=== PATIENT | female | born 1970 ===

== ENCOUNTER 2017-11-05 12:23 | Emergency (ER) | payer OTHER ==
[2017-11-05 12:24] VITALS: BMI 25.0
[2017-11-05 12:36] VITALS: BP 133/80; PULSE 64; RESP 18; TEMP 97.7; O2SAT 99
--- NOTE | 2017-11-05 13:21 | ED PDOC ---
HPI: Skin/Bite Injury Time Seen by Provider: 11/05/17 12:40 Chief Complaint (Nursing): Abnormal Skin Integrity Chief Complaint (Provider): Itchy rash x 1 week History Per: Patient History/Exam Limitations: no limitations Onset/Duration Of Symptoms: Days Current Symptoms Are (Timing): Still Present Additional Complaint(s): 47 year old female presents to the ER for an evaluation of itchy rash on the face, upper extremities and torso. Patient was given Amoxicillin for bronchitis 10 days ago. She reports she is unaware if she had rashes in the past. Patient denies difficulty breathing, swelling in the mouth, any new symptoms, medication, soap or lotion. PMD: Tanya Cuellar Past Medical History Reviewed: Historical Data, Nursing Documentation, Vital Signs Vital Signs: Last Vital Signs Temp 97.7 F 11/05/17 12:35 Pulse 64 11/05/17 12:35 Resp 18 11/05/17 12:35 BP 133/80 11/05/17 12:35 Pulse Ox 99 11/05/17 12:35 - Medical History PMH: Arthritis, Asthma, Bronchitis, Chronic Pain (both knees, back) Denies: Chronic Kidney Disease - Family History Family History: States: Unknown Family Hx - Social History Current smoker - smoking cessation education provided: Yes (Light Smoker < 10 Cigarettes Daily) Alcohol: Social Drugs: Cannabis, Cocaine - Immunization History Hx Tetanus Toxoid Vaccination: No - Home Medications Home Medications: Ambulatory Orders Medication Instructions Recorded Azithromycin [Zithromax] 250 mg PO DAILY #6 cap 10/25/13 Codeine Phos/Phenyleph HCl/P 5 ml PO Q6H #100 syr 10/25/13 [Phenergan Vc W/Codeine 120 ml] Prednisone 10 mg PO TID #15 tab 10/25/13 Albuterol/Ipratropium [Duoneb 3 3 ml IH Q6H PRN #30 neb 10/31/13 mg/0.5 mg (3 ml) UD] Mask, Face [Nebulizer Aerosol Mask 1 dev XX PRN PRN #1 dev 10/31/13 Adult] Moxifloxacin Hydrochloride [Avelox] 400 mg PO DAILY #6 tab 10/31/13 Nebulizer [Compact Compressor 1 dev XX PRN PRN #1 dev 10/31/13 Nebulizer] Albuterol HFA [Ventolin HFA 90 2 puff IH [id number] #0 puff 11/18/13 mcg/actuation (8 g)] Benzonatate [Tessalon Perles] 100 mg PO Q8 #20 sgl 11/18/13 Prednisone 40 mg PO DAILY 3 Days tab 11/18/13 Metaxalone [Skelaxin] 800 mg PO Q8 #15 tab 03/13/14 Naproxen [Naprosyn] 1 tab PO BID PRN #25 tab 03/13/14 oxyCODONE/Acetaminophen [Percocet 1 tab PO QID PRN #10 tab 03/13/14 5/325 mg Tab] Ibuprofen [Motrin] 600 mg PO Q8 #30 tab 08/21/14 Ciprofloxacin/Ciprofloxa HCl 500 mg PO BID #14 tab 03/04/15 [Ciprofloxacin] metroNIDAZOLE [Flagyl] 500 mg PO TID #21 tab 03/04/15 traMADol [Ultram] 50 mg PO TID PRN #12 tab 03/04/15 traMADol [Ultram] 50 mg PO Q4 #10 tab 07/31/15 Ibuprofen [Motrin] 400 mg PO Q6 #30 tab 10/08/15 Dicyclomine [Bentyl] 20 mg PO Q12 PRN #20 tab 04/04/16 Ondansetron ODT [Zofran ODT] 4 mg PO Q6 PRN #16 odt 04/04/16 Albuterol Sulfate [Proair Hfa] 0.09 mg IH Q6H PRN #2 inh 10/26/17 Amoxicillin/Clavulanate [Augmentin 1 tab PO BID 7 Days tab 10/26/17 500 MG-125 MG] predniSONE [predniSONE Tab] 20 mg PO BID 5 Days tab 10/26/17 Famotidine [Pepcid] 20 mg PO DAILY #5 tab 11/05/17 predniSONE [predniSONE Tab] 20 mg PO DAILY #12 tab 11/05/17 - Allergies Allergies/Adverse Reactions: Allergies Allergy/AdvReac Type Severity Reaction Status Date / Time black pepper Allergy RASH Verified 10/26/17 12:24 seafood Allergy RASH Uncoded 04/04/16 16:31 tomato sauce Allergy RASH Uncoded 04/04/16 16:31 Review of Systems ROS Statement: Except As Marked, All Systems Reviewed And Found Negative ENT: Negative for: Mouth Swelling Respiratory: Negative for: Shortness of Breath Skin: Positive for: Rash Psych: Negative for: Suicidal ideation (homicidal ideation) Physical Exam - Reviewed Nursing Documentation Reviewed: Yes Vital Signs Reviewed: Yes - Physical Exam Appears: Positive for: Non-toxic, No Acute Distress Head Exam: Positive for: ATRAUMATIC, NORMAL INSPECTION, NORMOCEPHALIC Skin: Positive for: Rash (erythematous blanching rash on truck and upper extremities ) Cardiovascular/Chest: Positive for: Regular Rate, Rhythm. Negative for: Murmur Respiratory: Positive for: Normal Breath Sounds. Negative for: Decreased Breath Sounds, Wheezing, Respiratory Distress Neurologic/Psych: Positive for: Alert, Oriented - ECG O2 Sat by Pulse Oximetry: 99 (RA) Pulse Ox Interpretation: Normal Medical Decision Making Medical Decision Making: Time: 1299 Initial Plan: --SOLU-Medrol 125mg --Pepcid 20mg --Reevaluation Scribe Attestation: Documented by Carol Ann Fuentes, acting as a scribe for Anushka Chandler PA-C. Provider Scribe Attestation: All medical record entries made by the Scribe were at my direction and personally dictated by me. I have reviewed the chart and agree that the record accurately reflects my personal performance of the history, physical exam, medical decision making, and the department course for this patient. I have also personally directed, reviewed, and agree with the discharge instructions and disposition. Disposition - Clinical Impression Clinical Impression: Allergic reaction - Patient ED Disposition Is Patient to be Admitted: No Counseled Patient/Family Regarding: Diagnosis, Need For Followup, Rx Given - Disposition Disposition: Routine/Home Disposition Time: 13:16 Condition: STABLE Prescriptions: Famotidine [Pepcid] 20 mg PO DAILY #5 tab predniSONE [predniSONE Tab] 20 mg PO DAILY #12 tab Instructions: Drug Allergy Forms: [employer] (Yakut)
== END 2017-11-05 13:22 | disposition home or self-care (01) ==
LOC: H.ER 12:23
DX: T78.40XA Allergy, unspecified, initial encounter (principal); G89.29 Other chronic pain
CPT/HCPCS: 81025; 96372; 99283; J2930

== ENCOUNTER 2017-11-07 14:31 | Emergency (ER) | payer OTHER ==
[2017-11-07 14:32] VITALS: BMI 25.0
[2017-11-07 14:44] VITALS: BP 140/78; PULSE 88; RESP 18; TEMP 98.3; O2SAT 99
--- NOTE | 2017-11-07 15:04 | ED PDOC ---
HPI: Allergic Reaction Time Seen by Provider: 11/07/17 14:43 Chief Complaint (Nursing): Allergic Reaction Chief Complaint (Provider): Allergic reaction History Per: Patient History/Exam Limitations: no limitations Onset/Duration Of Symptoms: Days (x4) Current Symptoms Are (Timing): Still Present Home/EMS Treatment: Benadryl Additional Complaint(s): Stephani Saels is a 47 year old female, with no significant past medical history, who presents to the emergency department for evaluation of an itchy rash on face, upper extremities and torso. Patient was recently diagnosed with bronchitis and was given Amoxicillin x12 days ago. Patient is unsure of having similar symptoms in the past. She was seen here x2 days ago for the same symptoms, she was prescribed pepcid and prednisone and reports appearance of rash has improved but still feels itchy. She took 12.5mg of Benadryl but doesn't want to take any more because she doesn't want to feel tired. She denies any shortness of breath, mouth or throat swelling, new medications or exposures such as lotions or soap. No further medical complaints. PMD: Tanya Cuellar Past Medical History Reviewed: Historical Data, Nursing Documentation, Vital Signs Vital Signs: Last Vital Signs Temp 98.3 F 11/07/17 14:40 Pulse 88 11/07/17 14:40 Resp 18 11/07/17 14:40 BP 140/78 11/07/17 14:40 Pulse Ox 99 11/07/17 14:40 - Medical History PMH: Arthritis, Asthma, Bronchitis, Chronic Pain (both knees, back) Denies: Chronic Kidney Disease - Family History Family History: States: Unknown Family Hx - Immunization History Hx Tetanus Toxoid Vaccination: No - Home Medications Home Medications: Ambulatory Orders Medication Instructions Recorded Azithromycin [Zithromax] 250 mg PO DAILY #6 cap 10/25/13 Codeine Phos/Phenyleph HCl/P 5 ml PO Q6H #100 syr 10/25/13 [Phenergan Vc W/Codeine 120 ml] Prednisone 10 mg PO TID #15 tab 10/25/13 Albuterol/Ipratropium [Duoneb 3 3 ml IH Q6H PRN #30 neb 10/31/13 mg/0.5 mg (3 ml) UD] Mask, Face [Nebulizer Aerosol Mask 1 dev XX PRN PRN #1 dev 10/31/13 Adult] Moxifloxacin Hydrochloride [Avelox] 400 mg PO DAILY #6 tab 10/31/13 Nebulizer [Compact Compressor 1 dev XX PRN PRN #1 dev 10/31/13 Nebulizer] Albuterol HFA [Ventolin HFA 90 2 puff IH [id number] #0 puff 11/18/13 mcg/actuation (8 g)] Benzonatate [Tessalon Perles] 100 mg PO Q8 #20 sgl 11/18/13 Prednisone 40 mg PO DAILY 3 Days tab 11/18/13 Metaxalone [Skelaxin] 800 mg PO Q8 #15 tab 03/13/14 Naproxen [Naprosyn] 1 tab PO BID PRN #25 tab 03/13/14 oxyCODONE/Acetaminophen [Percocet 1 tab PO QID PRN #10 tab 03/13/14 5/325 mg Tab] Ibuprofen [Motrin] 600 mg PO Q8 #30 tab 08/21/14 Ciprofloxacin/Ciprofloxa HCl 500 mg PO BID #14 tab 03/04/15 [Ciprofloxacin] metroNIDAZOLE [Flagyl] 500 mg PO TID #21 tab 03/04/15 traMADol [Ultram] 50 mg PO TID PRN #12 tab 03/04/15 traMADol [Ultram] 50 mg PO Q4 #10 tab 07/31/15 Ibuprofen [Motrin] 400 mg PO Q6 #30 tab 10/08/15 Dicyclomine [Bentyl] 20 mg PO Q12 PRN #20 tab 04/04/16 Ondansetron ODT [Zofran ODT] 4 mg PO Q6 PRN #16 odt 04/04/16 Albuterol Sulfate [Proair Hfa] 0.09 mg IH Q6H PRN #2 inh 10/26/17 Amoxicillin/Clavulanate [Augmentin 1 tab PO BID 7 Days tab 10/26/17 500 MG-125 MG] predniSONE [predniSONE Tab] 20 mg PO BID 5 Days tab 10/26/17 Famotidine [Pepcid] 20 mg PO DAILY #5 tab 11/05/17 predniSONE [predniSONE Tab] 20 mg PO DAILY #12 tab 11/05/17 Hydroxyzine Pamoate [Vistaril] 25 mg PO BID PRN #20 capsule 11/07/17 - Allergies Allergies/Adverse Reactions: Allergies Allergy/AdvReac Type Severity Reaction Status Date / Time black pepper Allergy RASH Verified 10/26/17 12:24 seafood Allergy RASH Uncoded 04/04/16 16:31 tomato sauce Allergy RASH Uncoded 04/04/16 16:31 Review of Systems ROS Statement: Except As Marked, All Systems Reviewed And Found Negative ENT: Negative for: Mouth Swelling, Throat Swelling Respiratory: Negative for: Shortness of Breath Skin: Positive for: Rash (face, torso and upper extremities) Physical Exam - Reviewed Nursing Documentation Reviewed: Yes Vital Signs Reviewed: Yes - Physical Exam Appears: Positive for: No Acute Distress Head Exam: Positive for: ATRAUMATIC, NORMOCEPHALIC Skin: Positive for: Normal Color, Warm, Dry, Rash (Erythematous blanching rash on trunk and upper extremities) Eye Exam: Positive for: Normal appearance ENT: Positive for: Normal ENT Inspection Neck: Positive for: Painless ROM Cardiovascular/Chest: Positive for: Regular Rate, Rhythm. Negative for: Murmur Respiratory: Positive for: Normal Breath Sounds. Negative for: Respiratory Distress Back: Positive for: Normal Inspection Extremity: Positive for: Normal ROM (upper and lower extremities). Negative for: Tenderness, Deformity, Swelling Neurologic/Psych: Positive for: Alert, Oriented - ECG O2 Sat by Pulse Oximetry: 99 (RA) Pulse Ox Interpretation: Normal Disposition - Clinical Impression Clinical Impression: Dermatitis - Patient ED Disposition Is Patient to be Admitted: No - Disposition Referrals: Tanya Cuellar MD [Primary Care Provider] - Disposition: Routine/Home Disposition Time: 15:02 Condition: STABLE Prescriptions: Hydroxyzine Pamoate [Vistaril] 25 mg PO BID PRN #20 capsule PRN Reason: itchiness Instructions: Hives (DC) Forms: [employer] (Czech) Medical Decision Making Medical Decision Making: Time: 14:43 Initial Impression: Dermatitis Initial Plan: 15:10 -Patient requires no further treatment in the ED at this time. She will be discharged home with Rx for Vistaril. Counseling was provided and all questions were answered regarding diagnosis and need for follow up with PMD. There is agreement to discharge plan. Return if symptoms persist or worsen. Scribe Attestation: Documented by Israel Franco, acting as a scribe for Anushka Chandler PA-C Provider Scribe Attestation: All medical record entries made by the Scribe were at my direction and personally dictated by me. I have reviewed the chart and agree that the record accurately reflects my personal performance of the history, physical exam, medical decision making, and the department course for this patient. I have also personally directed, reviewed, and agree with the discharge instructions and di sposition.
--- NOTE | 2017-11-07 15:04 | ED PDOC ---
HPI: Skin/Bite Injury Time Seen by Provider: 11/07/17 14:43 Chief Complaint (Nursing): Allergic Reaction Chief Complaint (Provider): Allergic reaction History Per: Patient History/Exam Limitations: no limitations Onset/Duration Of Symptoms: Days (x4) Current Symptoms Are (Timing): Still Present Quality Of Symptoms: Itching Past Medical History Vital Signs: Last Vital Signs Temp 98.3 F 11/07/17 14:40 Pulse 88 11/07/17 14:40 Resp 18 11/07/17 14:40 BP 140/78 11/07/17 14:40 Pulse Ox 99 11/07/17 14:40 - Medical History PMH: Arthritis, Asthma, Bronchitis, Chronic Pain (both knees, back) Denies: Chronic Kidney Disease - Family History Family History: States: Unknown Family Hx - Immunization History Hx Tetanus Toxoid Vaccination: No - Home Medications Home Medications: Ambulatory Orders Medication Instructions Recorded Azithromycin [Zithromax] 250 mg PO DAILY #6 cap 10/25/13 Codeine Phos/Phenyleph HCl/P 5 ml PO Q6H #100 syr 10/25/13 [Phenergan Vc W/Codeine 120 ml] Prednisone 10 mg PO TID #15 tab 10/25/13 Albuterol/Ipratropium [Duoneb 3 3 ml IH Q6H PRN #30 neb 10/31/13 mg/0.5 mg (3 ml) UD] Mask, Face [Nebulizer Aerosol Mask 1 dev XX PRN PRN #1 dev 10/31/13 Adult] Moxifloxacin Hydrochloride [Avelox] 400 mg PO DAILY #6 tab 10/31/13 Nebulizer [Compact Compressor 1 dev XX PRN PRN #1 dev 10/31/13 Nebulizer] Albuterol HFA [Ventolin HFA 90 2 puff IH [id number] #0 puff 11/18/13 mcg/actuation (8 g)] Benzonatate [Tessalon Perles] 100 mg PO Q8 #20 sgl 11/18/13 Prednisone 40 mg PO DAILY 3 Days tab 11/18/13 Metaxalone [Skelaxin] 800 mg PO Q8 #15 tab 03/13/14 Naproxen [Naprosyn] 1 tab PO BID PRN #25 tab 03/13/14 oxyCODONE/Acetaminophen [Percocet 1 tab PO QID PRN #10 tab 03/13/14 5/325 mg Tab] Ibuprofen [Motrin] 600 mg PO Q8 #30 tab 08/21/14 Ciprofloxacin/Ciprofloxa HCl 500 mg PO BID #14 tab 03/04/15 [Ciprofloxacin] metroNIDAZOLE [Flagyl] 500 mg PO TID #21 tab 03/04/15 traMADol [Ultram] 50 mg PO TID PRN #12 tab 03/04/15 traMADol [Ultram] 50 mg PO Q4 #10 tab 07/31/15 Ibuprofen [Motrin] 400 mg PO Q6 #30 tab 10/08/15 Dicyclomine [Bentyl] 20 mg PO Q12 PRN #20 tab 04/04/16 Ondansetron ODT [Zofran ODT] 4 mg PO Q6 PRN #16 odt 04/04/16 Albuterol Sulfate [Proair Hfa] 0.09 mg IH Q6H PRN #2 inh 10/26/17 Amoxicillin/Clavulanate [Augmentin 1 tab PO BID 7 Days tab 10/26/17 500 MG-125 MG] predniSONE [predniSONE Tab] 20 mg PO BID 5 Days tab 10/26/17 Famotidine [Pepcid] 20 mg PO DAILY #5 tab 11/05/17 predniSONE [predniSONE Tab] 20 mg PO DAILY #12 tab 11/05/17 Hydroxyzine Pamoate [Vistaril] 25 mg PO BID PRN #20 capsule 11/07/17 - Allergies Allergies/Adverse Reactions: Allergies Allergy/AdvReac Type Severity Reaction Status Date / Time black pepper Allergy RASH Verified 10/26/17 12:24 seafood Allergy RASH Uncoded 04/04/16 16:31 tomato sauce Allergy RASH Uncoded 04/04/16 16:31 - ECG O2 Sat by Pulse Oximetry: 99 Disposition - Clinical Impression Clinical Impression: Dermatitis - Disposition Referrals: Tanya Cuellar MD [Primary Care Provider] - Condition: STABLE Prescriptions: Hydroxyzine Pamoate [Vistaril] 25 mg PO BID PRN #20 capsule PRN Reason: itchiness Instructions: Hives (DC) Forms: [employer] (Israeli)
== END 2017-11-07 15:22 | disposition home or self-care (01) ==
LOC: H.ER 14:31 → SUPCPDRO 14:31 → H.ER 15:22
DX: L30.9 Dermatitis, unspecified (principal)

== ENCOUNTER 2017-12-16 13:13 | Emergency (ER) | payer MEDICAID ==
[2017-12-16 13:13] VITALS: BMI 25.0
[2017-12-16 13:26] VITALS: BP 127/77; PULSE 62; RESP 18; TEMP 98; O2SAT 100
--- NOTE | 2017-12-16 13:37 | ED PDOC ---
Lower Extremity Pain/Injury Time Seen by Provider: 12/16/17 13:22 Chief Complaint (Nursing): Lower Extremity Problem/Injury Chief Complaint (Provider): Left foot pain x 1 year History Per: Patient History/Exam Limitations: no limitations Onset/Duration Of Symptoms: Days Current Symptoms Are (Timing): Still Present Additional Complaint(s): Pt has out-patient XR this morning for left foot pain x 1 year. Pt states she has been taking motrin 800mg every 6 hours at home with out relief. Pt would like additional pain medication for continued pain. Pt states f/u appointment for out-patient foot XR in 1 month and she does not want to wait for pain control. Past Medical History Reviewed: Historical Data, Nursing Documentation, Vital Signs Vital Signs: Last Vital Signs Temp 98 F 12/16/17 13:20 Pulse 62 12/16/17 13:20 Resp 18 12/16/17 13:20 BP 127/77 12/16/17 13:20 Pulse Ox 100 12/16/17 13:20 - Medical History PMH: Arthritis, Asthma, Bronchitis, Chronic Pain (both knees, back) Denies: Chronic Kidney Disease - Family History Family History: States: Unknown Family Hx - Immunization History Hx Tetanus Toxoid Vaccination: No - Home Medications Home Medications: Ambulatory Orders Medication Instructions Recorded Azithromycin [Zithromax] 250 mg PO DAILY #6 cap 10/25/13 Codeine Phos/Phenyleph HCl/P 5 ml PO Q6H #100 syr 10/25/13 [Phenergan Vc W/Codeine 120 ml] Prednisone 10 mg PO TID #15 tab 10/25/13 Albuterol/Ipratropium [Duoneb 3 3 ml IH Q6H PRN #30 neb 10/31/13 mg/0.5 mg (3 ml) UD] Mask, Face [Nebulizer Aerosol Mask 1 dev XX PRN PRN #1 dev 10/31/13 Adult] Moxifloxacin Hydrochloride [Avelox] 400 mg PO DAILY #6 tab 10/31/13 Nebulizer [Compact Compressor 1 dev XX PRN PRN #1 dev 10/31/13 Nebulizer] Albuterol HFA [Ventolin HFA 90 2 puff IH [id number] #0 puff 11/18/13 mcg/actuation (8 g)] Benzonatate [Tessalon Perles] 100 mg PO Q8 #20 sgl 11/18/13 Prednisone 40 mg PO DAILY 3 Days tab 11/18/13 Metaxalone [Skelaxin] 800 mg PO Q8 #15 tab 03/13/14 Naproxen [Naprosyn] 1 tab PO BID PRN #25 tab 03/13/14 oxyCODONE/Acetaminophen [Percocet 1 tab PO QID PRN #10 tab 03/13/14 5/325 mg Tab] Ibuprofen [Motrin] 600 mg PO Q8 #30 tab 08/21/14 Ciprofloxacin/Ciprofloxa HCl 500 mg PO BID #14 tab 03/04/15 [Ciprofloxacin] metroNIDAZOLE [Flagyl] 500 mg PO TID #21 tab 03/04/15 traMADol [Ultram] 50 mg PO TID PRN #12 tab 03/04/15 traMADol [Ultram] 50 mg PO Q4 #10 tab 07/31/15 Ibuprofen [Motrin] 400 mg PO Q6 #30 tab 10/08/15 Dicyclomine [Bentyl] 20 mg PO Q12 PRN #20 tab 04/04/16 Ondansetron ODT [Zofran ODT] 4 mg PO Q6 PRN #16 odt 04/04/16 Albuterol Sulfate [Proair Hfa] 0.09 mg IH Q6H PRN #2 inh 10/26/17 Amoxicillin/Clavulanate [Augmentin 1 tab PO BID 7 Days tab 10/26/17 500 MG-125 MG] predniSONE [predniSONE Tab] 20 mg PO BID 5 Days tab 10/26/17 Famotidine [Pepcid] 20 mg PO DAILY #5 tab 11/05/17 predniSONE [predniSONE Tab] 20 mg PO DAILY #12 tab 11/05/17 Hydroxyzine Pamoate [Vistaril] 25 mg PO BID PRN #20 capsule 11/07/17 - Allergies Allergies/Adverse Reactions: Allergies Allergy/AdvReac Type Severity Reaction Status Date / Time black pepper Allergy RASH Verified 12/16/17 13:20 seafood Allergy RASH Uncoded 12/16/17 13:20 tomato sauce Allergy RASH Uncoded 12/16/17 13:20 Review of Systems Musculoskeletal: Positive for: Foot Pain Physical Exam - Reviewed Nursing Documentation Reviewed: Yes Vital Signs Reviewed: Yes - Physical Exam Appears: Positive for: Well, No Acute Distress Head Exam: Positive for: ATRAUMATIC Skin: Positive for: Normal Color Eye Exam: Positive for: Normal appearance ENT: Positive for: Normal ENT Inspection Neck: Positive for: Normal Cardiovascular/Chest: Negative for: Bradycardia, Tachycardia Respiratory: Negative for: Accessory Muscle Use, Respiratory Distress Back: Positive for: Normal Inspection Extremity: Positive for: Other (Steady gait ) Neurologic/Psych: Positive for: Alert - ECG O2 Sat by Pulse Oximetry: 100 Medical Decision Making Medical Decision Makin - Pt states she has to go to work and does not want to wait in the ER for additional foot treatment. Pt's XR from today reviewed. No acute abnormalities. Disposition - Clinical Impression Clinical Impression: Foot pain - Patient ED Disposition Is Patient to be Admitted: No - Disposition Disposition: Left W/O Treatment Disposition Time: 13:35 Condition: STABLE Forms: [employer] (Urdu)
== END 2017-12-16 13:45 | disposition left against medical advice (07) ==
LOC: H.ER 13:13
DX: M79.672 Pain in left foot (principal)

== ENCOUNTER 2018-01-10 14:47 | Emergency (ER) | payer MEDICAID ==
[2018-01-10 14:47] VITALS: BMI 25.0
[2018-01-10] MEDS ORDERED: Iohexol 240 (50 ml) PO ONE (16:33)
[2018-01-10 16:43] LABS: BASO # 0.1 K/uL (0.0-0.2); BASO % 1.5 % (0.0-2.0); EOS # 0.3 K/uL (0.0-0.7); HEMOGLOBIN 13.1 g/dL (12.0-16.0); LYMPH # 3.2 K/uL (1.0-4.3); LYMPH % 35.3 % (20.0-40.0); MEAN CELL VOLUME 93.4 fl (81.0-99.0); MEAN CORPUSCULAR HEMOGLOBIN 30.9 pg (27.0-31.0); MEAN CORPUSCULAR HGB CONC 33.1 g/dL (33.0-37.0); MEAN PLATELET VOLUME 9.2 fl (7.2-11.7); MONO # 0.7 K/uL (0.0-0.8); MONO % 8.1 % (0.0-10.0); NEUT # 4.7 K/uL (1.8-7.0); NEUT % 52.1 % (50.0-75.0); NRBC % 0.1 % (0.0-0.0); RBC 4.24 Mil/uL (3.80-5.20); RED CELL DISTRIBUTION WIDTH 13.9 % (11.5-14.5)
[2018-01-10 16:52] LABS: URINE BILIRUBIN NEGATIVE (NEGATIVE); URINE CLARITY SLIGHT-CLOUDY (Clear); URINE COLOR YELLOW (YELLOW); URINE GLUCOSE (UA) NEGATIVE (Normal)
[2018-01-10] MEDS ORDERED: Iohexol 240 (50 ml) ONE (16:52)
[2018-01-10 16:53] LABS: SQUAMOUS EPITHIAL 9 /hpf (0-5); URINE BLOOD NEGATIVE (NEGATIVE); URINE LEUKOCYTE ESTERASE NEGATIVE Leu/uL (Negative); URINE PROTEIN NEGATIVE (NEGATIVE); URINE UROBILINOGEN 0.2 mg/dL (0.2-1.0)
--- NOTE | 2018-01-10 16:53 | ED PDOC ---
HPI: Abdomen Time Seen by Provider: 01/10/18 15:15 Chief Complaint (Nursing): Abdominal Pain Chief Complaint (Provider): Abdominal Pain History Per: Patient History/Exam Limitations: no limitations Onset/Duration Of Symptoms: Days Current Symptoms Are (Timing): Still Present Location Of Pain/Discomfort: LLQ Quality Of Discomfort: "Pain" Additional Complaint(s): 47 year old female presents to the ED for an evaluation for left lower quadrant abdominal pain and left flank pain intermittently onset for 2 weeks. Denies n ausea, vomiting, diarrhea or fever. PMD: Bob Morris Past Medical History Reviewed: Historical Data, Nursing Documentation, Vital Signs Vital Signs: Last Vital Signs Temp 98.5 F 01/10/18 14:58 Pulse 84 01/10/18 14:58 Resp 18 01/10/18 14:58 BP 119/82 01/10/18 14:58 Pulse Ox 99 01/10/18 14:58 - Medical History PMH: Arthritis, Asthma, Bronchitis, Chronic Pain (both knees, back) Denies: Chronic Kidney Disease - Family History Family History: States: Unknown Family Hx - Social History Current smoker - smoking cessation education provided: Yes (several cigarettes a day ) Alcohol: Social Drugs: Cannabis, Cocaine - Immunization History Hx Tetanus Toxoid Vaccination: No - Home Medications Home Medications: Ambulatory Orders Medication Instructions Recorded Azithromycin [Zithromax] 250 mg PO DAILY #6 cap 10/25/13 Codeine Phos/Phenyleph HCl/P 5 ml PO Q6H #100 syr 10/25/13 [Phenergan Vc W/Codeine 120 ml] RX: Prednisone 10 mg PO TID #15 tab 10/25/13 Mask, Face [Nebulizer Aerosol Mask 1 dev XX PRN PRN #1 dev 10/31/13 Adult] Moxifloxacin Hydrochloride [Avelox] 400 mg PO DAILY #6 tab 10/31/13 RX: Albuterol/Ipratropium [Duoneb 3 ml IH Q6H PRN #30 neb 10/31/13 3 mg/0.5 mg (3 ml) UD] RX: Nebulizer [Compact Compressor 1 dev XX PRN PRN #1 dev 10/31/13 Nebulizer] Benzonatate [Tessalon Perles] 100 mg PO Q8 #20 sgl 11/18/13 RX: Albuterol HFA [Ventolin HFA 90 2 puff IH [id number] #0 puff 11/18/13 mcg/actuation (8 g)] RX: Prednisone 40 mg PO DAILY 3 Days tab 11/18/13 Metaxalone [Skelaxin] 800 mg PO Q8 #15 tab 03/13/14 RX: Naproxen [Naprosyn] 1 tab PO BID PRN #25 tab 03/13/14 oxyCODONE/Acetaminophen [Percocet 1 tab PO QID PRN #10 tab 03/13/14 5/325 mg Tab] Ibuprofen [Motrin] 600 mg PO Q8 #30 tab 08/21/14 Ciprofloxacin/Ciprofloxa HCl 500 mg PO BID #14 tab 03/04/15 [Ciprofloxacin] RX: traMADol [Ultram] 50 mg PO TID PRN #12 tab 03/04/15 metroNIDAZOLE [Flagyl] 500 mg PO TID #21 tab 03/04/15 traMADol [Ultram] 50 mg PO Q4 #10 tab 07/31/15 Ibuprofen [Motrin] 400 mg PO Q6 #30 tab 10/08/15 Dicyclomine [Bentyl] 20 mg PO Q12 PRN #20 tab 04/04/16 Ondansetron ODT [Zofran ODT] 4 mg PO Q6 PRN #16 odt 04/04/16 Albuterol Sulfate [Proair Hfa] 0.09 mg IH Q6H PRN #2 inh 10/26/17 Amoxicillin/Clavulanate [Augmentin 1 tab PO BID 7 Days tab 10/26/17 500 MG-125 MG] RX: predniSONE [predniSONE Tab] 20 mg PO BID 5 Days tab 10/26/17 Famotidine [Pepcid] 20 mg PO DAILY #5 tab 11/05/17 RX: predniSONE [predniSONE Tab] 20 mg PO DAILY #12 tab 11/05/17 Hydroxyzine Pamoate [Vistaril] 25 mg PO BID PRN #20 capsule 11/07/17 Ciprofloxacin [Cipro] 1 tab PO BID #14 tab 01/10/18 Dicyclomine [Bentyl] 20 mg PO QID PRN #20 tab 01/10/18 Saccharomyces Boulardi [Florastor] 500 mg PO BID #28 cap 01/10/18 metroNIDAZOLE [Flagyl] 500 mg PO TID #21 tab 01/10/18 - Allergies Allergies/Adverse Reactions: Allergies Allergy/AdvReac Type Severity Reaction Status Date / Time black pepper Allergy RASH Verified 12/16/17 13:20 seafood Allergy RASH Uncoded 12/16/17 13:20 tomato sauce Allergy RASH Uncoded 12/16/17 13:20 Review of Systems ROS Statement: Except As Marked, All Systems Reviewed And Found Negative Constitutional: Negative for: Fever Cardiovascular: Negative for: Chest Pain Respiratory: Negative for: Cough Gastrointestinal: Positive for: Abdominal Pain. Negative for: Nausea, Vomiting, Diarrhea Physical Exam - Reviewed Nursing Documentation Reviewed: Yes Vital Signs Reviewed: Yes - Physical Exam Appears: Positive for: Non-toxic, No Acute Distress Head Exam: Positive for: ATRAUMATIC, NORMAL INSPECTION, NORMOCEPHALIC Skin: Positive for: Normal Color, Warm, Dry. Negative for: Rash Eye Exam: Positive for: EOMI, Normal appearance, PERRL ENT: Positive for: Normal ENT Inspection Neck: Positive for: Normal, Painless ROM, Supple. Negative for: Decreased ROM Cardiovascular/Chest: Positive for: Regular Rate, Rhythm. Negative for: Murmur Respiratory: Positive for: Normal Breath Sounds. Negative for: Decreased Breath Sounds, Wheezing, Respiratory Distress Gastrointestinal/Abdominal: Positive for: Soft, Tenderness (LLQ). Negative for: Distended, Guarding Back: Positive for: Normal Inspection. Negative for: L CVA Tenderness, R CVA Tenderness Extremity: Positive for: Normal ROM. Negative for: Tenderness, Pedal Edema, Deformity Neurologic/Psych: Positive for: Alert, Oriented (x3). Negative for: Motor/Sensory Deficits - Laboratory Results Result Diagrams: 01/10/18 16:35 01/10/18 16:35 - ECG O2 Sat by Pulse Oximetry: 99 (RA) Pulse Ox Interpretation: Normal Medical Decision Making Medical Decision Making: Time: 1604 Initial Plan: Abd Pelvis PO & IV Contrast [CT] CMP CBC w/ Differential Morphine 2mg Omnipaque 50ml Manager [employer]icing Urinalysis Reevaluation Time: 1700 Patient will be signed out Dr. Foy pending workup. Scribe Attestation: Documented by Carol Ann Fuentes, acting as a scribe for Margarita Lloyd MD. Provider Scribe Attestation: All medical record entries made by the Scribe were at my direction and personally dictated by me. I have reviewed the chart and agree that the record accurately reflects my personal performance of the history, physical exam, medical decision making, and the department course for this patient. I have also personally directed, reviewed, and agree with the discharge instructions and disposition. Disposition - Clinical Impression Clinical Impression: UTI (urinary tract infection), Colitis - Patient ED Disposition Is Patient to be Admitted: Transfer of Care - Disposition Referrals: [facility] [Outside] (CALL TOMORROW TO SCHEDULE FOLLOWUP APPOINTMENT BY THE END OF THE WEEK) Disposition: Transfer of Care Disposition Time: 17:00 Condition: STABLE Prescriptions: Ciprofloxacin [Cipro] 1 tab PO BID #14 tab Dicyclomine [Bentyl] 20 mg PO QID PRN #20 tab PRN Reason: abdominal pain metroNIDAZOLE [Flagyl] 500 mg PO TID #21 tab Saccharomyces Boulardi [Florastor] 500 mg PO BID #28 cap Instructions: Diarrhea in Adolescents and Adults, Urinary Tract Infection, Adult (DC) Patient Signed Over To: Marielena Foy Handoff Comments: pending workup
[2018-01-10 17:29] LABS: ALBUMIN 4.2 g/dL (3.5-5.0); ALT/SGPT 52 U/L (9-52); AST/SGOT 67 U/L (14-36); BLOOD UREA NITROGEN 18 mg/dl (7-17); CALCIUM 9.4 mg/dL (8.4-10.2); GFR NON-AFRICAN AMERICAN > 60
--- NOTE | 2018-01-10 17:50 | ED PDOC ---
- Laboratory Results Result Diagrams: 01/10/18 16:35 01/10/18 16:35 - ECG O2 Sat by Pulse Oximetry: 99 (RA) - Progress ED Course And Treament: 5p Rec'd from Dr Lloyd. Abdominal pain pending CT. EXAM: CT Abdomen and Pelvis with IV contrast CLINICAL HISTORY: Abd pain patient states: left sided pain TECHNIQUE: Axial computed tomography images of the abdomen and pelvis with oral and intravenous contrast. CONTRAST: With intravenous contrast. COMPARISON: None provided. FINDINGS: LUNG BASES: The lung bases appear clear. No pleural effusions are seen. LIVER: Unremarkable. GALLBLADDER AND BILE DUCTS: The gallbladder appears within normal limits. No radioopaque gallstones are seen. No biliary ductal dilatation is evident. PANCREAS: Unremarkable. SPLEEN: Unremarkable. ADRENAL GLANDS: Unremarkable. 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 10x6 mm left renal cyst. STOMACH AND BOWEL: Thick walled fluid filled colon is noted with involvement of all segments com patible with diffuse pancolitis. Infectious and inflammatory etiologies are considered. Consider follow up with colonoscopy. APPENDIX: No evidence of acute appendicitis on CT examination. PERITONEUM: No free fluid. No free air. LYMPH NODES: No lymphadenopathy is evident. REPRODUCTIVE: Unremarkable as visualized. VASCULATURE: No evidence of abdominal aortic aneurysm. BONES: No aggressive appearing osseous lesion. No acute osseous pathology evident. MISCELLANEOUS: Small fat-containing umbilical hernia is noted. IMPRESSION: 1. Pancolitis. Infectious and inflammatory etiologies are considered. Consider follow up with colonoscopy. 2. 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 3. 10x6 mm left renal cyst. 4. Small fat-containing umbilical hernia is noted. Electronically signed on Jan 10, 2018 8:49:42 PM EST by: Bashir Fuentes M.D., JACQUELIN Certified By [employer] [facility] Fellowship Trained MRI and CT Specialist Disposition Counseled Patient/Family Regarding: Studies Performed, Diagnosis, Need For Followup, Rx Given - Clinical Impression Clinical Impression: UTI (urinary tract infection), Colitis - POA Present On Arrival: None - Disposition Referrals: [facility] [Outside] (CALL TOMORROW TO SCHEDULE FOLLOWUP APPOINTMENT BY THE END OF THE WEEK) Disposition: Routine/Home Disposition Time: 21:04 Condition: STABLE Prescriptions: Ciprofloxacin [Cipro] 1 tab PO BID #14 tab Dicyclomine [Bentyl] 20 mg PO QID PRN #20 tab PRN Reason: abdominal pain metroNIDAZOLE [Flagyl] 500 mg PO TID #21 tab Saccharomyces Boulardi [Florastor] 500 mg PO BID #28 cap Instructions: Urinary Tract Infection, Adult (DC), Diarrhea in Adolescents and Adults
[2018-01-10] MEDS ORDERED: Iohexol 300 100 ML IJ ONE (19:26)
[2018-01-10] MEDS ORDERED: Sodium Chloride 0.9% 50 ML IV ONE (19:26)
[2018-01-10 21:03] VITALS: O2SAT 99
[2018-01-10 21:42] VITALS: BP 126/78; PULSE 73; RESP 18; TEMP 98.3
--- NOTE | 2018-01-11 11:22 | CT ---
Date of service: 01/10/2018 PROCEDURE: CT Abdomen and Pelvis with contrast HISTORY: Abdominal pain COMPARISON: 04/04/2016 CT abdomen and pelvis TECHNIQUE: Intravenous contrast dose: 90 cc Omnipaque 300. Radiation dose: Total exam DLP = 573.25 mGy-cm. This CT exam was performed using one or more of the following dose reduction techniques: Automated exposure control, adjustment of the mA and/or kV according to patient size, and/or use of iterative reconstruction technique. FINDINGS: LOWER THORAX: Unremarkable. LIVER: Unremarkable. No gross lesion or ductal dilatation. GALLBLADDER AND BILE DUCTS: Unremarkable. PANCREAS: Unremarkable. No gross lesion or ductal dilatation. SPLEEN: Unremarkable. ADRENALS: Unremarkable. No mass. KIDNEYS AND URETERS: Unremarkable. No hydronephrosis. No solid mass. Ptotic right kidney a stable finding. Incidental 1 cm cyst upper pole left kidney. VASCULATURE: Unremarkable. No aortic aneurysm. No atherosclerotic calcification or mural plaque present. BOWEL: Unremarkable. No obstruction. No gross mural thickening. APPENDIX: Normal appendix. PERITONEUM: Unremarkable. No free fluid. No free air. LYMPH NODES: Unremarkable. No enlarged lymph nodes. BLADDER: Unremarkable. REPRODUCTIVE: Unremarkable. BONES: No acute fracture. OTHER FINDINGS: None. IMPRESSION: No significant or acute findings to account for/ related to the clinical presentation. Additional benign and/or incidental findings described above. No significant interval change compared to the prior examination(s). These are discordant findings with the preliminary interpretation. Specifically no evidence of colitis. Per institutional protocol, the study will be placed in the PA review folder.
== END 2018-01-10 21:42 | disposition home or self-care (01) ==
LOC: H.ER 14:47
DX: N39.0 Urinary tract infection, site not specified (principal); K52.9 Noninfective gastroenteritis and colitis, unspecified; F17.210 Nicotine dependence, cigarettes, uncomplicated
CPT/HCPCS: 74177; 80053; 81003; 81025; 85025; 96374; 99285; J2270; Q9966; Q9967

== ENCOUNTER 2018-01-31 09:23 | Emergency (ER) | payer MEDICAID ==
[2018-01-31 09:23] VITALS: BMI 25.0
[2018-01-31] MEDS ORDERED: Albuterol 0.083% Inhal Sol (2.5 mg/3 mL) UD INH STA (10:23)
[2018-01-31] MEDS ORDERED: Albuterol 0.083% Inhal Sol (2.5 mg/3 mL) UD ONE (11:09)
--- NOTE | 2018-01-31 11:18 | ED PDOC ---
History of Present Illness History of Present Illness: 48 year old female with a history of asthma and bronchitis presents to the ED with a productive cough, body aches, chills and a sore throat for the last three days. Patient reports that she has a cough for a couple months productive of green sputum along with chest pain and wheezing. Body aches, chills and sore throat developed three days ago. Denies fever. PMD: Dr. Tanya Cuellar HPI: Influenza Time Seen by Provider: 01/31/18 10:03 Chief Complaint: Cough, Cold, Congestion Chief Complaint (Provider): Cough, Cold, Congestion History Per: Patient Exam Limitations: no limitations Onset/Duration Of Symptoms: Days (x 3) Symptoms include: bodyaches, sore throat, cough. denies: fever Risk factors for flu complications: Yes: chronic lung disease Past Medical History Reviewed: Historical Data, Nursing Documentation, Vital Signs Vital Signs: Last Vital Signs Temp 98.4 F 01/31/18 09:29 Pulse 76 01/31/18 09:29 Resp 15 01/31/18 09:29 BP 109/73 01/31/18 09:29 Pulse Ox 96 01/31/18 09:29 - Medical History PMH: Arthritis, Asthma, Bronchitis, Chronic Pain (both knees, back) Denies: Chronic Kidney Disease - Surgical History Surgical History: No Surg Hx - Family History Family History: States: Unknown Family Hx - Social History Current smoker - smoking cessation education provided: Yes - Immunization History Hx Tetanus Toxoid Vaccination: No - Home Medications Home Medications: Ambulatory Orders Medication Instructions Recorded Azithromycin [Zithromax] 250 mg PO DAILY #6 cap 10/25/13 Codeine Phos/Phenyleph HCl/P 5 ml PO Q6H #100 syr 10/25/13 [Phenergan Vc W/Codeine 120 ml] RX: Prednisone 10 mg PO TID #15 tab 10/25/13 Mask, Face [Nebulizer Aerosol Mask 1 dev XX PRN PRN #1 dev 10/31/13 Adult] Moxifloxacin Hydrochloride [Avelox] 400 mg PO DAILY #6 tab 10/31/13 RX: Albuterol/Ipratropium [Duoneb 3 ml IH Q6H PRN #30 neb 10/31/13 3 mg/0.5 mg (3 ml) UD] RX: Nebulizer [Compact Compressor 1 dev XX PRN PRN #1 dev 10/31/13 Nebulizer] Benzonatate [Tessalon Perles] 100 mg PO Q8 #20 sgl 11/18/13 RX: Prednisone 40 mg PO DAILY 3 Days tab 11/18/13 Metaxalone [Skelaxin] 800 mg PO Q8 #15 tab 03/13/14 RX: Naproxen [Naprosyn] 1 tab PO BID PRN #25 tab 03/13/14 oxyCODONE/Acetaminophen [Percocet 1 tab PO QID PRN #10 tab 03/13/14 5/325 mg Tab] Ibuprofen [Motrin] 600 mg PO Q8 #30 tab 08/21/14 Ciprofloxacin/Ciprofloxa HCl 500 mg PO BID #14 tab 03/04/15 [Ciprofloxacin] RX: traMADol [Ultram] 50 mg PO TID PRN #12 tab 03/04/15 metroNIDAZOLE [Flagyl] 500 mg PO TID #21 tab 03/04/15 traMADol [Ultram] 50 mg PO Q4 #10 tab 07/31/15 Ibuprofen [Motrin] 400 mg PO Q6 #30 tab 10/08/15 Dicyclomine [Bentyl] 20 mg PO Q12 PRN #20 tab 04/04/16 Ondansetron ODT [Zofran ODT] 4 mg PO Q6 PRN #16 odt 04/04/16 Albuterol Sulfate [Proair Hfa] 0.09 mg IH Q6H PRN #2 inh 10/26/17 Amoxicillin/Clavulanate [Augmentin 1 tab PO BID 7 Days tab 10/26/17 500 MG-125 MG] RX: predniSONE [predniSONE Tab] 20 mg PO BID 5 Days tab 10/26/17 Famotidine [Pepcid] 20 mg PO DAILY #5 tab 11/05/17 RX: predniSONE [predniSONE Tab] 20 mg PO DAILY #12 tab 11/05/17 Hydroxyzine Pamoate [Vistaril] 25 mg PO BID PRN #20 capsule 11/07/17 Ciprofloxacin [Cipro] 1 tab PO BID #14 tab 01/10/18 Dicyclomine [Bentyl] 20 mg PO QID PRN #20 tab 01/10/18 Saccharomyces Boulardi [Florastor] 500 mg PO BID #28 cap 01/10/18 metroNIDAZOLE [Flagyl] 500 mg PO TID #21 tab 01/10/18 RX: Albuterol HFA [Ventolin HFA 90 2 puff IH [id number] #1 inh 01/31/18 mcg/actuation (8 g)] RX: Azithromycin [Z-Petr] 250 mg PO ASDIR #6 tab 01/31/18 RX: Promethazine/Codeine 5 ml PO Q6 PRN #100 ml 01/31/18 [Phenergan/Codeine Oral Syrup] - Allergies Allergies/Adverse Reactions: Allergies Allergy/AdvReac Type Severity Reaction Status Date / Time black pepper Allergy RASH Verified 12/16/17 13:20 seafood Allergy RASH Uncoded 12/16/17 13:20 tomato sauce Allergy RASH Uncoded 12/16/17 13:20 Review of Systems ROS Statement: Except As Marked, All Systems Reviewed And Found Negative Constitutional: Positive for: Chills, Other (body aches). Negative for: Fever Cardiovascular: Positive for: Chest Pain (with coughing) Respiratory: Positive for: Cough, Wheezing Gastrointestinal: Negative for: Nausea, Vomiting, Abdominal Pain Neurological: Negative for: Headache Physical Exam - Reviewed Nursing Documentation Reviewed: Yes Vital Signs Reviewed: Yes - Physical Exam Appears: Positive for: Non-toxic, No Acute Distress Head Exam: Positive for: ATRAUMATIC, NORMAL INSPECTION, NORMOCEPHALIC Skin: Positive for: Normal Color, Warm, Dry. Negative for: Rash Eye Exam: Positive for: EOMI, Normal appearance, PERRL Neck: Positive for: Normal, Painless ROM, Supple Cardiovascular/Chest: Positive for: Regular Rate, Rhythm. Negative for: Murmur Respiratory: Positive for: Wheezing (mild occasional wheezing bilaterally). Negative for: Respiratory Distress Gastrointestinal/Abdominal: Positive for: Normal Exam, Soft. Negative for: Tenderness Extremity: Positive for: Normal ROM (x 4). Negative for: Deformity Neurologic/Psych: Positive for: Alert, Oriented (x 3). Negative for: Motor/Sensory Deficits Medical Decision Making Medical Decision Makin:22 Impression: cough and flu like symptoms Differential diagnoses include but are not limited to: bronchitis, pneumonia and influenza Initial Plan: --CXR --Influenza AB --Albuterol 0.083% 2.5 mg INH --Peak flow pre/post Scribe Attestation: Documented by Ghazala Barlow acting as a scribe for Nina Fontana MD Provider Scribe Attestation: All medical record entries made by the Scribe were at my direction and personally dictated by me. I have reviewed the chart and agree that the record accurately reflects my personal performance of the history, physical exam, medical decision making, and the department course for this patient. I have also personally directed, reviewed, and agree with the discharge instructions and disposition. - Laboratory Results Result Diagrams: 01/31/18 13:43 01/31/18 13:43 - ECG O2 Sat by Pulse Oximetry: 96 (RA) Pulse Ox Interpretation: Normal - Radiology X-Ray: Read By Radiologist X-Ray Interpretation: No Acute Disease Disposition - Clinical Impression Clinical Impression: Bronchitis, Abdominal pain - Patient ED Disposition Is Patient to be Admitted: Transfer of Care Counseled Patient/Family Regarding: Studies Performed, Diagnosis, Need For Followup - Disposition Referrals: [facility] [Outside] Disposition: Transfer of Care Disposition Time: 16:00 Condition: GOOD Additional Instructions: RAMANDEEP ESTRADA, thank you for letting us take care of you today. Your provider was Nina Fontana MD and you were treated for COUGH, SOB. The emergency medical care you received today was directed at your acute symptoms. If you were prescribed any medication, please fill it and take as directed. It may take several days for your symptoms to resolve. Return to the Emergency Department if your symptoms worsen, do not improve, or if you have any other problems. Please contact your doctor or call one of the physicians/clinics you have been referred to that are listed on the Patient Visit Information form that is included in your discharge packet. Bring any paperwork you were given at discharge with you along with any medications you are taking to your follow up visit. Our treatment cannot replace ongoing medical care by a primary care provider outside of the emergency department. Thank you for allowing the [facility] team to be part of your care today. If you had an X-Ray or CT scan: A Radiologist will review the ED reading if any change in treatment is needed we will contact you. If you had a blood, urine, or wound culture: It will take several days for the results, if any change in treatment is needed we will contact you. If you had an STI test: It will take 48 hours for the results. Please call after 1 week if you have not heard back. Prescriptions: RX: Albuterol HFA [Ventolin HFA 90 mcg/actuation (8 g)] 2 puff IH [id number] #1 inh RX: Azithromycin [Z-Petr] 250 mg PO ASDIR #6 tab RX: Promethazine/Codeine [Phenergan/Codeine Oral Syrup] 5 ml PO Q6 PRN #100 ml PRN Reason: Cough Instructions: Acute Bronchitis
--- NOTE | 2018-01-31 12:12 | RAD ---
Date of service: 01/31/2018 HISTORY: Fever and cough COMPARISON: No prior. TECHNIQUE: Chest PA and lateral FINDINGS: LINES AND TUBES: None. LUNG AND PLEURA: The lungs are well inflated and clear. No pleural effusion or pneumothorax. HEART AND MEDIASTINUM: The heart is not enlarged. No aortic atherosclerotic calcification present. The hilar and mediastinal contours are within normal limits. SKELETAL STRUCTURES: The bony structures are within normal limits for the patient's age. VISUALIZED UPPER ABDOMEN: Normal. OTHER FINDINGS: None. IMPRESSION: No active pulmonary disease.
[2018-01-31 13:54] LABS: BASO # 0.1 K/uL (0.0-0.2); EOS # 0.3 K/uL (0.0-0.7); EOS % 3.4 % (0.0-4.0); HEMOGLOBIN 12.8 g/dL (12.0-16.0); LYMPH # 3.1 K/uL (1.0-4.3); LYMPH % 34.7 % (20.0-40.0); MEAN CELL VOLUME 96.1 fl (81.0-99.0); MEAN CORPUSCULAR HEMOGLOBIN 31.1 pg (27.0-31.0); MEAN CORPUSCULAR HGB CONC 32.3 g/dL (33.0-37.0); MEAN PLATELET VOLUME 9.2 fl (7.2-11.7); MONO # 0.9 K/uL (0.0-0.8); MONO % 9.5 % (0.0-10.0); NEUT # 4.6 K/uL (1.8-7.0); NEUT % 51.4 % (50.0-75.0); NRBC % 0.3 % (0.0-0.0); RBC 4.13 Mil/uL (3.80-5.20); RED CELL DISTRIBUTION WIDTH 14.4 % (11.5-14.5); WHITE BLOOD COUNT 9.1 K/uL (4.8-10.8)
[2018-01-31] MEDS ORDERED: Promethazine/Cod 6.25mg-10mg/5ml Syr UD PO STA (14:22)
[2018-01-31 14:31] LABS: BLOOD UREA NITROGEN 17 mg/dl (7-17); GFR NON-AFRICAN AMERICAN > 60
[2018-01-31] MEDS ORDERED: Promethazine/Cod 6.25mg-10mg/5ml Syr UD ONE (14:46)
[2018-01-31] MEDS ORDERED: Iohexol 300 100 ML IJ ONE (14:47)
[2018-01-31] MEDS ORDERED: Sodium Chloride 0.9% 50 ML IV ONE (14:47)
--- NOTE | 2018-01-31 16:13 | CT ---
Date of service: 01/31/2018 PROCEDURE: CT Abdomen and Pelvis with contrast HISTORY: LLQ pain COMPARISON: None. TECHNIQUE: Following the intravenous administration of iodinated contrast material, a CT examination of the abdomen and pelvis performed from the domes of the diaphragms to the symphysis pubis with reformatted datasets provided in axial, sagittal and coronal planes. Oral contrast was not administered as per referring physician request. Coronal and sagittal reformats were generated. Contrast dose: Omnipaque 300, 90 cc Radiation dose: Total exam DLP = 631.47 mGy-cm. This CT exam was performed using one or more of the following dose reduction techniques: Automated exposure control, adjustment of the mA and/or kV according to patient size, and/or use of iterative reconstruction technique. FINDINGS: LOWER THORAX: Unremarkable. LIVER: Unremarkable. No gross lesion or ductal dilatation. GALLBLADDER AND BILE DUCTS: Unremarkable. PANCREAS: Unremarkable. No gross lesion or ductal dilatation. SPLEEN: Unremarkable. ADRENALS: Unremarkable. No mass. KIDNEYS AND URETERS: Ectopic right kidney identified at the right parasagittal lower abdomen. No hydronephrosis. No solid mass. VASCULATURE: Unremarkable. No aortic aneurysm. No aortic atherosclerotic calcification or mural plaque present. BOWEL: The stomach is moderately distended with retained food. No bowel obstruction identified. No colonic diverticulosis, including sigmoid colon. Moderate retained fecal material is identified distending the ascending colon somewhat. Remaining large and small bowel appear relatively collapsed. Small bowel appears unremarkable as imaged. Evaluation of the gastrointestinal tract is limited due to the lack of oral contrast administration. APPENDIX: Normal appendix. Variant retrocecal positioning is identified with the tip terminating adjacent to the right adrenal gland. PERITONEUM: Tiny umbilical hernia containing only fat. No free fluid. No free air. LYMPH NODES: Unremarkable. No enlarged lymph nodes. BLADDER: Unremarkable. REPRODUCTIVE: Unremarkable. BONES: No acute fracture. OTHER FINDINGS: None. IMPRESSION: 1. No definite acute abdominal or pelvic findings. Left lower quadrant contents appear unremarkable. 2. Ectopic right kidney at the right parasagittal lower abdomen.
--- NOTE | 2018-01-31 16:20 | ED PDOC ---
- Laboratory Results Result Diagrams: 01/31/18 13:43 01/31/18 13:43 - ECG O2 Sat by Pulse Oximetry: 96 (RA) Disposition - Clinical Impression Clinical Impression: Bronchitis, Abdominal pain - POA Present On Arrival: None - Disposition Referrals: [facility] [Outside] Disposition: Routine/Home Disposition Time: 16:19 Condition: GOOD Additional Instructions: RAMANDEEP ESTRADA, thank you for letting us take care of you today. Your pr ovider was Nina Fontana MD and you were treated for COUGH, SOB. The emergency medical care you received today was directed at your acute symptoms. If you were prescribed any medication, please fill it and take as directed. It may take several days for your symptoms to resolve. Return to the Emergency Department if your symptoms worsen, do not improve, or if you have any other problems. Please contact your doctor or call one of the physicians/clinics you have been referred to that are listed on the Patient Visit Information form that is included in your discharge packet. Bring any paperwork you were given at discharge with you along with any medications you are taking to your follow up visit. Our treatment cannot replace ongoing medical care by a primary care provider outside of the emergency department. Thank you for allowing the Critical access hospital team to be part of your care today. If you had an X-Ray or CT scan: A Radiologist will review the ED reading if any change in treatment is needed we will contact you. If you had a blood, urine, or wound culture: It will take several days for the results, if any change in treatment is needed we will contact you. If you had an STI test: It will take 48 hours for the results. Please call after 1 week if you have not heard back. Prescriptions: Albuterol HFA [Ventolin HFA 90 mcg/actuation (8 g)] 2 puff IH [id number] #1 inh Azithromycin [Z-Petr] 250 mg PO ASDIR #6 tab Promethazine/Codeine [Phenergan/Codeine Oral Syrup] 5 ml PO Q6 PRN #100 ml PRN Reason: Cough Instructions: Acute Bronchitis
[2018-01-31 16:36] VITALS: BP 128/76; PULSE 78; RESP 19; TEMP 97.7
[2018-02-01 07:35] VITALS: O2SAT 96
== END 2018-01-31 16:36 | disposition home or self-care (01) ==
LOC: H.ER 09:23
DX: R10.9 Unspecified abdominal pain (principal); J40 Bronchitis, not specified as acute or chronic; J45.909 Unspecified asthma, uncomplicated; F17.200 Nicotine dependence, unspecified, uncomplicated; G89.29 Other chronic pain; Z79.899 Other long term (current) drug therapy
CPT/HCPCS: 71046; 74177; 80048; 81025; 85025; 87804; 99283; Q9967

== ENCOUNTER 2018-05-09 10:36 | Emergency (ER) | payer MEDICAID ==
[2018-05-09 10:36] VITALS: BMI 25.0
[2018-05-09] MEDS ORDERED: Albuterol-Ipratrop 3 mg / 0.5 (3 ml) UD ONE (12:18)
[2018-05-09 12:27] VITALS: RESP 20; O2SAT 98
--- NOTE | 2018-05-09 12:31 | ED PDOC ---
HPI: General Adult Time Seen by Provider: 05/09/18 12:00 Chief Complaint (Nursing): Flu-like Symptoms Chief Complaint (Provider): URI symptoms, back pain History Per: Patient History/Exam Limitations: no limitations Onset/Duration Of Symptoms: Persistent Current Symptoms Are (Timing): Still Present Additional History Per: Patient Additional Complaint(s): 48yo female with history of chronic back pain, herniated disks, scoliosis, asthma, comes to ER reporting 4 day history of right sided back pain. She denies any trauma or injury and states the pain may be due to the mattress she sleeps on. She denies any associated weakness, numbness, difficulty walking, bowel/bladder dysfunction, hematuria. Patient has additional complaints of URI symptoms including a productive cough, nasal congestion, subjective fever and chills for the past 5 days. She reports multiple episodes of bronchitis in the past, and states her symptoms might be due to staying in the correction as there are a lot of sick people there. She has been taking Tylenol, meloxicam (last does 8am), and using inhaler and nebulizer treatment with some relief. No complaints of chest pain, shortness of breath, or recent travels. PMD: [facility] Past Medical History Reviewed: Historical Data, Nursing Documentation, Vital Signs - Medical History PMH: Arthritis, Asthma, Bronchitis, Chronic Pain (both knees, back) Denies: Chronic Kidney Disease - Family History Family History: States: Unknown Family Hx - Living Arrangements Living Arrangements: Other (homeless correction) - Social History Current smoker - smoking cessation education provided: Yes Alcohol: None Drugs: Denies - Immunization History Hx Tetanus Toxoid Vaccination: No - Home Medications Home Medications: Ambulatory Orders Medication Instructions Recorded Azithromycin [Zithromax] 250 mg PO DAILY #6 cap 10/25/13 Codeine Phos/Phenyleph HCl/P 5 ml PO Q6H #100 syr 10/25/13 [Phenergan Vc W/Codeine 120 ml] Prednisone 10 mg PO TID #15 tab 10/25/13 Albuterol/Ipratropium [Duoneb 3 3 ml IH Q6H PRN #30 neb 10/31/13 mg/0.5 mg (3 ml) UD] Mask, Face [Nebulizer Aerosol Mask 1 dev XX PRN PRN #1 dev 10/31/13 Adult] Moxifloxacin Hydrochloride [Avelox] 400 mg PO DAILY #6 tab 10/31/13 Nebulizer [Compact Compressor 1 dev XX PRN PRN #1 dev 10/31/13 Nebulizer] Benzonatate [Tessalon Perles] 100 mg PO Q8 #20 sgl 11/18/13 Prednisone 40 mg PO DAILY 3 Days tab 11/18/13 Metaxalone [Skelaxin] 800 mg PO Q8 #15 tab 03/13/14 Naproxen [Naprosyn] 1 tab PO BID PRN #25 tab 03/13/14 oxyCODONE/Acetaminophen [Percocet 1 tab PO QID PRN #10 tab 03/13/14 5/325 mg Tab] Ibuprofen [Motrin] 600 mg PO Q8 #30 tab 08/21/14 Ciprofloxacin/Ciprofloxa HCl 500 mg PO BID #14 tab 03/04/15 [Ciprofloxacin] metroNIDAZOLE [Flagyl] 500 mg PO TID #21 tab 03/04/15 traMADol [Ultram] 50 mg PO TID PRN #12 tab 03/04/15 traMADol [Ultram] 50 mg PO Q4 #10 tab 07/31/15 Ibuprofen [Motrin] 400 mg PO Q6 #30 tab 10/08/15 Dicyclomine [Bentyl] 20 mg PO Q12 PRN #20 tab 04/04/16 Ondansetron ODT [Zofran ODT] 4 mg PO Q6 PRN #16 odt 04/04/16 Albuterol Sulfate [Proair Hfa] 0.09 mg IH Q6H PRN #2 inh 10/26/17 Amoxicillin/Clavulanate [Augmentin 1 tab PO BID 7 Days tab 10/26/17 500 MG-125 MG] predniSONE [predniSONE Tab] 20 mg PO BID 5 Days tab 10/26/17 Famotidine [Pepcid] 20 mg PO DAILY #5 tab 11/05/17 predniSONE [predniSONE Tab] 20 mg PO DAILY #12 tab 11/05/17 Hydroxyzine Pamoate [Vistaril] 25 mg PO BID PRN #20 capsule 11/07/17 Ciprofloxacin [Cipro] 1 tab PO BID #14 tab 01/10/18 Dicyclomine [Bentyl] 20 mg PO QID PRN #20 tab 01/10/18 Saccharomyces Boulardi [Florastor] 500 mg PO BID #28 cap 01/10/18 metroNIDAZOLE [Flagyl] 500 mg PO TID #21 tab 01/10/18 Albuterol HFA [Ventolin HFA 90 2 puff IH [id number] #1 inh 01/31/18 mcg/actuation (8 g)] Azithromycin [Z-Petr] 250 mg PO ASDIR #6 tab 01/31/18 Promethazine/Codeine 5 ml PO Q6 PRN #100 ml 01/31/18 [Phenergan/Codeine Oral Syrup] Azithromycin [Zithromax] 250 mg PO DAILY 5 Days #6 tab 05/09/18 - Allergies Allergies/Adverse Reactions: Allergies Allergy/AdvReac Type Severity Reaction Status Date / Time black pepper Allergy RASH Verified 12/16/17 13:20 seafood Allergy RASH Uncoded 12/16/17 13:20 tomato sauce Allergy RASH Uncoded 12/16/17 13:20 Review of Systems ROS Statement: Except As Marked, All Systems Reviewed And Found Negative Constitutional: Positive for: Fever, Chills ENT: Positive for: Nose Congestion Cardiovascular: Negative for: Chest Pain Respiratory: Positive for: Cough, Sputum. Negative for: Shortness of Breath Genitourinary Female: Negative for: Dysuria, Incontinence, Hematuria Musculoskeletal: Positive for: Back Pain Neurological: Negative for: Weakness, Numbness Physical Exam - Reviewed Nursing Documentation Reviewed: Yes Vital Signs Reviewed: Yes - Physical Exam Comments: GENERAL APPEARANCE: Patient is awake, alert, oriented x 3, in no acute distress. SKIN: Warm, dry; (-) cyanosis. EYES: (-) conjunctival pallor. ENMT: Mucous membranes moist. (+) Audible nasal congestion NECK: (-) tenderness, (-) stiffness, (-) lymphadenopathy. CHEST AND RESPIRATORY: (-) rales, (-) rhonchi, (-) wheezes; breath sounds equal bilaterally. HEART AND CARDIOVASCULAR: (-) irregularity; (-) murmur, (-) gallop. (+) cough with deep inspiration ABDOMEN AND GI: Soft; (-) tenderness; (-) palpable mass. BACK: (+) paraspinal tenderness between T12-L4/5, (+) mild spasm on R side T12, (-) direct bony tenderness, (-) deformity. Straight leg raising (-) bilaterally. EXTREMITIES: (-) deformity. Distal pulses good bilaterally. NEURO AND PSYCH: Mental status as above. Intact sensation bilaterally; normal strength in extension of the knees, plantar and dorsiflexion of the toes. DTRs symmetric. Medical Decision Making Medical Decision Making: Back pain, URI symptoms Plan: -- Toradol 30mg IM -- Duoneb 3ml INH -- Flexeril 10mg PO 1320 Patient remains awake, alert, oriented x 3 and is laying in bed comfortably. On exam, neck is supple, lungs are clear, abdomen is soft and non tender, heart is at regular rate and rhythm. Repeat neuro shows no focal findings. Patient is stable for discharge home. Advised to follow up with primary care physician in 1-2 days without fail. Advised to take medication as prescribed. Return to the emergency room at any time for any new or worsening symptoms. Pt is feeling better, discussed results, diagnosis, treatment, return precautions and f/u with pt who is understanding, in agreement and stable for dc Scribe Attestation: Documented by Patricia Mays, acting as a scribe for FADIA Boo. Provider Scribe Attestation: All medical record entries made by the Scribe were at my direction and personally dictated by me. I have reviewed the chart and agree that the record accurately reflects my personal performance of the history, physical exam, medical decision making, and the department course for this patient. I have also personally directed, reviewed, and agree with the discharge instructions and disposition. Disposition - Clinical Impression Clinical Impression: Bronchitis, Low back pain, Muscle spasm of back - Patient ED Disposition Is Patient to be Admitted: No Counseled Patient/Family Regarding: Studies Performed, Diagnosis, Need For Followup, Rx Given - Disposition Referrals: [facility] [Outside] Disposition: Routine/Home Disposition Time: 13:20 Condition: IMPROVED Additional Instructions: Return to ED for new or worsening symptoms, numbness or tingling, unable to walk, unable to swallow or breath. Follow up with your primary care doctor in 3- 5 days. Take medications as prescribed for symptoms. Rest, drink plenty of fluids. Avoid heavy lifting or strenuous activity for one week. Prescriptions: Azithromycin [Zithromax] 250 mg PO DAILY 5 Days #6 tab Instructions: Low Back Pain in Adults, Acute Bronchitis, Muscle Spasms (DC) Forms: [facility] (Singaporean) Print Language: HEBREW - POA Present On Arrival: None
[2018-05-09] MEDS: Albuterol-Ipratrop 3 mg / 0.5 (3 ml) UD INH STA (12:35)
[2018-05-09 14:07] VITALS: BP 126/78; PULSE 78; TEMP 97.6
== END 2018-05-09 13:40 | disposition home or self-care (01) ==
LOC: H.ER 10:36
DX: J40 Bronchitis, not specified as acute or chronic (principal); M54.5 Low back pain; M62.830 Muscle spasm of back; G89.29 Other chronic pain
CPT/HCPCS: 81025; 94640; 96372; 99282; J1885

== ENCOUNTER 2018-06-23 20:03 | Emergency (ER) | payer MEDICAID ==
[2018-06-23 20:03] VITALS: BMI 25.0
[2018-06-23] MEDS ORDERED: Albuterol 0.083% Inhal Sol (2.5 mg/3 mL) UD INH STA (20:43)
[2018-06-23] MEDS ORDERED: guaiFENesin 200 mg/10 ml Syrup UD PO STA (20:43)
[2018-06-23] MEDS ORDERED: Albuterol-Ipratrop 3 mg / 0.5 (3 ml) UD INH STA ×2 (20:43→21:21)
--- NOTE | 2018-06-23 20:49 | ED PDOC ---
HPI: SOB/CHF/COPD Time Seen by Provider: 06/23/18 20:31 Chief Complaint (Nursing): Shortness Of Breath Chief Complaint (Provider): Shortness Of Breath History Per: Patient History/Exam Limitations: no limitations Onset/Duration Of Symptoms: Days Current Symptoms Are (Timing): Still Present Additional Complaint(s): 48 y/o female with a PMHx of acid reflux and asthma presents to the ED for evaluation of a cough and worsening asthma exacerbation for the last week. Patient notes cough is productive of clear phlegm. Patient states she is currently residing in the skilled nursing where she has been exposed to multiple sick contacts. Otherwise, (-) taking medications prior to arrival, (-) fever, (-) recent travel, (-) prolonged immobility, (-) nausea, (-) vomiting, (-) chest pain. PMD: Dr. Marino ([facility]) Past Medical History Reviewed: Historical Data, Nursing Documentation, Vital Signs Vital Signs: Last Vital Signs Temp 98.8 F 06/23/18 20:20 Pulse 89 06/23/18 20:20 Resp 16 06/23/18 20:20 BP 139/59 L 06/23/18 20:20 Pulse Ox 98 06/23/18 20:20 - Medical History PMH: Arthritis, Asthma, Bronchitis, Chronic Pain (both knees, back) Other PMH: Acid Reflux - Surgical History Surgical History: No Surg Hx - Family History Family History: States: Unknown Family Hx - Living Arrangements Living Arrangements: Other (homeless) - Social History Current smoker - smoking cessation education provided: Yes - Home Medications Home Medications: Ambulatory Orders Medication Instructions Recorded Azithromycin [Zithromax] 250 mg PO DAILY #6 cap 10/25/13 Codeine Phos/Phenyleph HCl/P 5 ml PO Q6H #100 syr 10/25/13 [Phenergan Vc W/Codeine 120 ml] Prednisone 10 mg PO TID #15 tab 10/25/13 Albuterol/Ipratropium [Duoneb 3 3 ml IH Q6H PRN #30 neb 10/31/13 mg/0.5 mg (3 ml) UD] Mask, Face [Nebulizer Aerosol Mask 1 dev XX PRN PRN #1 dev 10/31/13 Adult] Moxifloxacin Hydrochloride [Avelox] 400 mg PO DAILY #6 tab 10/31/13 Nebulizer [Compact Compressor 1 dev XX PRN PRN #1 dev 10/31/13 Nebulizer] Benzonatate [Tessalon Perles] 100 mg PO Q8 #20 sgl 11/18/13 Prednisone 40 mg PO DAILY 3 Days tab 11/18/13 Metaxalone [Skelaxin] 800 mg PO Q8 #15 tab 03/13/14 Naproxen [Naprosyn] 1 tab PO BID PRN #25 tab 03/13/14 oxyCODONE/Acetaminophen [Percocet 1 tab PO QID PRN #10 tab 03/13/14 5/325 mg Tab] Ibuprofen [Motrin] 600 mg PO Q8 #30 tab 08/21/14 Ciprofloxacin/Ciprofloxa HCl 500 mg PO BID #14 tab 03/04/15 [Ciprofloxacin] metroNIDAZOLE [Flagyl] 500 mg PO TID #21 tab 03/04/15 traMADol [Ultram] 50 mg PO TID PRN #12 tab 03/04/15 traMADol [Ultram] 50 mg PO Q4 #10 tab 07/31/15 Ibuprofen [Motrin] 400 mg PO Q6 #30 tab 10/08/15 Dicyclomine [Bentyl] 20 mg PO Q12 PRN #20 tab 04/04/16 Ondansetron ODT [Zofran ODT] 4 mg PO Q6 PRN #16 odt 04/04/16 Albuterol Sulfate [Proair Hfa] 0.09 mg IH Q6H PRN #2 inh 10/26/17 Amoxicillin/Clavulanate [Augmentin 1 tab PO BID 7 Days tab 10/26/17 500 MG-125 MG] predniSONE [predniSONE Tab] 20 mg PO BID 5 Days tab 10/26/17 Famotidine [Pepcid] 20 mg PO DAILY #5 tab 11/05/17 predniSONE [predniSONE Tab] 20 mg PO DAILY #12 tab 11/05/17 Hydroxyzine Pamoate [Vistaril] 25 mg PO BID PRN #20 capsule 11/07/17 Ciprofloxacin [Cipro] 1 tab PO BID #14 tab 01/10/18 Dicyclomine [Bentyl] 20 mg PO QID PRN #20 tab 01/10/18 Saccharomyces Boulardi [Florastor] 500 mg PO BID #28 cap 01/10/18 metroNIDAZOLE [Flagyl] 500 mg PO TID #21 tab 01/10/18 Albuterol HFA [Ventolin HFA 90 2 puff IH [id number] #1 inh 01/31/18 mcg/actuation (8 g)] Azithromycin [Z-Petr] 250 mg PO ASDIR #6 tab 01/31/18 Promethazine/Codeine 5 ml PO Q6 PRN #100 ml 01/31/18 [Phenergan/Codeine Oral Syrup] Azithromycin [Zithromax] 250 mg PO DAILY 5 Days #6 tab 05/09/18 Albuterol 0.083% [Albuterol 0.083% 2.5 mg IH Q4 PRN #99 ml 06/23/18 Inhal Alida (2.5 mg/3 ml) UD] Albuterol Sulfate [Ventolin Hfa] 1 puff IH Q4 PRN #1 unit 06/23/18 Mask, Face [Nebulizer Aerosol Mask 1 dev XX PRN PRN #1 dev 06/23/18 Adult] Nebulizer [Aeroneb Go Nebulizer] 1 each MC DAILY #1 each 06/23/18 Prednisone [Deltasone] 40 mg PO DAILY #8 tablet 06/23/18 Promethazine DM [Phenergan DM 5 ml PO Q6 PRN #150 ml 06/23/18 Syrup] - Allergies Allergies/Adverse Reactions: Allergies Allergy/AdvReac Type Severity Reaction Status Date / Time black pepper Allergy RASH Verified 12/16/17 13:20 seafood Allergy RASH Uncoded 12/16/17 13:20 tomato sauce Allergy RASH Uncoded 12/16/17 13:20 Review of Systems ROS Statement: Except As Marked, All Systems Reviewed And Found Negative Respiratory: Positive for: Cough, Shortness of Breath Physical Exam - Reviewed Nursing Documentation Reviewed: Yes Vital Signs Reviewed: Yes - Physical Exam Comments: GENERAL APPEARANCE: Patient is awake, alert, oriented x 3, in no acute distress. Resting comfortably, talking on cell phone. SKIN: Warm, dry; (-) cyanosis. EYES: (-) conjunctival injection ENMT: Mucous membranes moist. Airway patent: (-) stridor. Pharynx: uvula midline (-) exudate (-) swelling, (-) erythema. (-) sinus tenderness. Nares patent. TMs: (-) bulging (-) erythema. NECK: Supple, FROM (-) tenderness, (-) stiffness, (-) lymphadenopathy. CHEST AND RESPIRATORY: (+) bilateral expiratory wheezing; (+) scattered rhonchi bilaterally (-) rales, (-) rhonchi; breath sounds equal bilaterally. Respirations even and nonlabored. Speaking in full sentences. HEART AND CARDIOVASCULAR: (-) irregularity ABDOMEN AND GI: Soft; (-) tenderness. EXTREMITIES: (-) deformity, (-) edema (-) calf tenderness NEURO AND PSYCH: Mental status as above; (-) focal findings. Gait: steady. Speech: clear. (-) facial asymmetry - ECG ECG: Positive for: Interpreted By Me, Viewed By Me ECG Rhythm: Positive for: Sinus Rhythm Interpretation Of ECG: No ST elevation. QTC is 445 O2 Sat by Pulse Oximetry: 98 (RA) Pulse Ox Interpretation: Normal Medical Decision Making Medical Decision Making: Time: 2044 Impression: cough, asthma exacerbation, bronchitis Plan: -- EKG -- Albuterol 2.5 mg INH x1 -- Duoneb 3 mm/0.5 mg (3ml) UD 3 ml INH x2 -- Robitussing 200 mg PO -- PredniSONE 60 mg PO -- Re-evaluation 2134 On re-evaluation, patient reports improvement of symptoms. On exam, patient remains AAOx3, in no acute distress. Lungs clear to auscultation, cardiac RRR, repeat neuro exam shows no focal findings. VSS, stable for discharge. Lab / Diagnostic results d/w the patient in great detail. Diagnosis of asthma exacerbation, cough/bronchitis d/w the patient. Based on history, exam and diagnostic results, plan will be for outpatient follow up. Patient instructed to follow-up with pmd / referral provided / the clinic in 1- 2 days without fail. Advised to take medication as prescribed. Return to the emergency room at any time for any new or worsening symptoms. Patient states she fully agrees with and understands discharge instructions. States that she agrees with the plan and disposition. Verbalized and repeated discharge instructions and plan. I have given the patient opportunity to ask any additional questions. Scribe Attestation: Documented by Kar Timmons, acting as a scribe Kyle Alarcon PA-C. Provider Scribe Attestation: All medical record entries made by the Scribe were at my direction and personally dictated by me. I have reviewed the chart and agree that the record accurately reflects my personal performance of the history, physical exam, medical decision making, and the department course for this patient. I have also personally directed, reviewed, and agree with the discharge instructions and disposition. Disposition - Clinical Impression Clinical Impression: Bronchitis, Cough, Asthma exacerbation - Patient ED Disposition Is Patient to be Admitted: No Counseled Patient/Family Regarding: Studies Performed, Diagnosis, Need For Followup, Rx Given, Smoking Cessation - Disposition Referrals: primary, doctor [Other] [facility] [place] [Outside] Disposition: Routine/Home Disposition Time: 21:35 Condition: STABLE Additional Instructions: The emergency medical care you received today was directed at your acute sympto ms. If you were prescribed any medication, please fill it and take as directed. It may take several days for your symptoms to resolve. Return to the Emergency Department if your symptoms worsen, do not improve, or if you have any other problems. Please contact your doctor in 2 days for re-evaluation and follow up / or call one of the physicians/clinics you have been referred to that are listed on the Patient Visit Information form that is included in your discharge packet. Bring any paperwork you were given at discharge with you along with any medications you are taking to your follow up visit. Our treatment cannot replace ongoing medical care by a primary care provider (PCP) outside of the emergency department. Prescriptions: Albuterol 0.083% [Albuterol 0.083% Inhal Laida (2.5 mg/3 ml) UD] 2.5 mg IH Q4 PRN #99 ml PRN Reason: Shortness Of Breath Albuterol Sulfate [Ventolin Hfa] 1 puff IH Q4 PRN #1 unit PRN Reason: Shortness Of Breath Mask, Face [Nebulizer Aerosol Mask Adult] 1 dev XX PRN PRN #1 dev PRN Reason: asthma exacerbation Nebulizer [Aeroneb Go Nebulizer] 1 each MC DAILY #1 each Prednisone [Deltasone] 40 mg PO DAILY #8 tablet Promethazine DM [Phenergan DM Syrup] 5 ml PO Q6 PRN #150 ml PRN Reason: Cough Instructions: Cough in Adults, Asthma, Adult (DC), Acute Bronchitis, Avoiding Asthma Triggers Forms: [facility] (Malian) Print Language: CAP[place] VERDEAN - POA Present On Arrival: None
[2018-06-23] MEDS ORDERED: Albuterol 0.083% Inhal Sol (2.5 mg/3 mL) UD ONE (21:04)
[2018-06-23] MEDS ORDERED: Albuterol-Ipratrop 3 mg / 0.5 (3 ml) UD ONE ×2 (21:05→21:29)
[2018-06-23] MEDS ORDERED: guaiFENesin 200 mg/10 ml Syrup UD ONE (21:07)
[2018-06-23 21:50] VITALS: RESP 20
[2018-06-23 21:52] VITALS: BP 130/70; PULSE 70; TEMP 98.2
--- NOTE | 2018-06-24 10:53 | CARD ---
APPROVED REPORT Date of service: 06/23/2018 EKG Measurement Heart [id number] <Conclusion> Normal sinus rhythm Normal ECG
[2018-06-24 18:49] VITALS: O2SAT 98
== END 2018-06-23 21:55 | disposition home or self-care (01) ==
LOC: H.ER 20:03
DX: J45.901 Unspecified asthma with (acute) exacerbation (principal); J40 Bronchitis, not specified as acute or chronic